=== PATIENT | female | born 1995 | race Caucasian/White ===

== ENCOUNTER 2020-04-01 18:42 | Emergency (ER) | payer OTHER, SELFPAY ==
[2020-04-01 19:01] VITALS: BP 141/88; PULSE 67; RESP 16; TEMP 37.1; O2SAT 100
--- NOTE | 2020-04-01 20:55 | ED.HA ---
HPI - Headache General Chief Complaint: Headache Stated Complaint: Headache Time Seen by Provider: 04/01/20 20:42 History of Present Illness HPI Narrative: Moderate to severe bifrontal headache since yesterday. No associated symptoms. Tried motrin without relief. She does get headaches occasionally, this is worse than usual. Related Data Home Medications Medication Instructions Recorded Confirmed No Home Medications 04/01/20 04/01/20 Allergies Allergy/AdvReac Type Severity Reaction Status Date / Time No Known Allergies Allergy Verified 04/01/20 19:04 Review of Systems Review of Systems: All systems reviewed & are unremarkable except as noted in HPI and below Constitutional: Constitutional: Denies chills, Denies fever(s) and Denies weakness Eyes: Eyes: Denies change in vision ENT: Denies dizziness, Denies nasal congestion and Denies sore throat Cardiovascular: Cardiovascular: Denies chest pain Respiratory: Respiratory: Denies dyspnea Gastrointestinal: Gastrointestinal: Denies nausea and Denies vomiting Musculoskeletal: Musculoskeletal: Denies back pain Neurologic: Denies confusion, Denies dizziness, Reports headache(s), Denies numbness and Denies weakness [facility] Social History Social History Gender identity (if verbalized by the patient): Male Exam Const: General: healthy appearing, no acute distress and alert Orientation/consciousness: patient oriented x3 HENMT: Head: normal to inspection Ears: TM's normal bilaterally Eyes: Pupils: Equal, round and reactive pupils present EOM: EOMs intact bilaterally Chest: Chest palpation & inspection: no tenderness Resp: Effort & Inspection: normal respiratory effort Auscultation: clear to auscultation bilaterally, no rales, no rhonchi and no wheezes Cardio: Jugular venous distension: no JVD Rate: regular rate Rhythm: regular rhythm Heart sounds: no murmurs GI: Inspection: non-distended GI Palp: Yes Soft to palpation and No Tenderness to palpation present (GI) Skin: General skin exam: normal color Neuro: General: patient oriented x3, moves all extremities, no meningeal signs, no focal motor deficits and CN's II-XI intact bilaterally Cranial nerves: Yes Nystagmus not present Speech: normal speech Gait exam (Neuro): Normal gait present Extrem: General: no edema Psych: Appearance: grossly normal and well kempt Mental Status: mental status grossly normal Affect: normal affect Attitude: cooperative Course Vital Signs Vital signs: Vital Signs Temperature 37.1 C 04/01/20 19:01 Pulse Rate 67 04/01/20 19:01 Respiratory Rate 16 04/01/20 19:01 Blood Pressure 141/88 H 04/01/20 19:01 Pulse Oximetry 100 04/01/20 19:01 Temperature 37.1 C 04/01/20 19:01 Pulse Rate 65 04/01/20 22:55 Respiratory Rate 16 04/01/20 22:55 Blood Pressure 123/75 04/01/20 22:55 Pulse Oximetry 99 04/01/20 22:55 MDM - Headache MDM Narrative Medical decision making narrative: Gradual onset. Similar to past headaches. No neuro deficit. Headache resolved with treatment. Differential Diagnosis Differential diagnosis: Likely migraine, tension headache and headache Medical Records Attestation: I reviewed the patient's medical records. Lab Data Labs: UCG Bedside Result Negative Reference Range: Negative Discharge Plan Discharge Clinical Impression: Headache Patient Disposition: Home, Self-Care Condition: Stable Instructions: Acute Headache (ED) Prescriptions: No Action No Home Medications RF: 0 Follow-up/Referrals: PHYSICIAN,BICYCLE COURIER [Primary Care Provider] - Discharge Date/Time: 04/01/20 22:55
[2020-04-01] MEDS: SODIUM CHLORIDE 0.9% IV 1,000 ML 999 ML IV CONT (21:33)
[2020-04-01] MEDS: diphenhydrAMINE HCl INJ 50 MG/ML VIAL 25 MG IV PUSH (21:35)
[2020-04-01] MEDS: METOCLOPRAMIDE HCL INJ 10 MG/2 ML VIAL IV PUSH (21:36)
[2020-04-01] MEDS: KETOROLAC 30 MG/ML VIAL (*BKC) IV PUSH (21:36)
[2020-04-01 22:55] VITALS: BP 123/75; PULSE 65; RESP 16; O2SAT 99
== END 2020-04-01 22:55 | disposition home or self-care (01) ==
PROVIDERS: Emergency Provider Emergency Medicine
DX: R51 Headache (principal)
CPT/HCPCS: 81025; 96365; 96375; 99284; J0131; J1200; J1885; J2765; J7030